=== PATIENT | male | born 1965 | race African-American/Black ===

== ENCOUNTER → 2018-06-05 | Day surgery (SDC) | payer MEDICARE, MEDICAID ==
[~2018-06-05] VITALS: Ht 175.3 cm; Wt 117.9 kg
[~2018-06-05] MED LIST: ALPR2TAB2 PO; AMLO2.5T45 MT; ASPI-1158 PO; CARV6.2548 MT; COR25 PO; FURO-151 PO; HEPARIN 1,000 UNITS PREMIX 0 ML IV ONE; LIDOCAINE HCL 1% 10 MG/ML 10ML VIAL ONE; LISI2.5T47 PO; OMEP20CA10 PO; POTA20TA12 PO; SACU1TAB7 MT
[2018-06-05 08:22] LABS: HEMATOCRIT 38.5 % (42.0-52.0); HEMOGLOBIN 12.6 g/dL (14.0-18.0); MEAN CORPUSCULAR HEMOGLOBIN 31.1 pg (28.0-32.0); MEAN CORPUSCULAR VOLUME 95.2 fL (80.0-94.0); PLATELET 200 x1000/uL (130-400); RED BLOOD CELL COUNT 4.04 mill/uL (4.7-6.1); RED CELL DISTRIBUTION WIDTH 15.5 % (11.6-14.6)
[2018-06-05 08:28] LABS: CHLORIDE 105 mEq/L (98-107)
[2018-06-05 08:31] LABS: PARTIAL THROMBOPLASTIN TIME 31.5 sec (23.4-31.0); PROTHROMBIN TIME 10.4 sec (9.1-11.1)
== END | disposition home or self-care (01) ==
LOC: OR 06:11
PROVIDERS: ATTEND Internal Medicine Clinical Cardiac Electrophysiology
DX: I47.2 Ventricular tachycardia (principal); I11.9 Hypertensive heart disease without heart failure; Z79.899 Other long term (current) drug therapy; J44.9 Chronic obstructive pulmonary disease, unspecified; E78.5 Hyperlipidemia, unspecified; I50.9 Heart failure, unspecified; Z53.8 Procedure and treatment not carried out for other reasons
CPT/HCPCS: 36415; 80048; 85027; 85610; 85730; 93005; J7030; J1644; J3490

== ENCOUNTER 2024-10-05 06:58 | Inpatient (IN) | payer MEDICARE, MEDICAID ==
[~2024-10-05] VITALS: Ht 208.3 cm; Wt 107.6 kg
[~2024-10-05 06:58] MED LIST changes: +ALBU18HF2 IH; -ALPR2TAB2 PO; -AMLO2.5T45 MT; +AMLO2.5T45 PO; -ASPI-1158 PO; +ASPI-1406 PO; +ATOR20TA PO; -CARV6.2548 MT; +CARV6.2548 PO; -COR25 PO; -FURO-151 PO; +GABA-1180 PO; -HEPARIN 1,000 UNITS PREMIX 0 ML IV ONE; +HYDR-4009 PO; -LIDOCAINE HCL 1% 10 MG/ML 10ML VIAL ONE; -LISI2.5T47 PO; -OMEP20CA10 PO; +OMEP20CA14 PO; -POTA20TA12 PO; +SACU1TAB4 PO; -SACU1TAB7 MT; +SPIR25TA6 PO; +VIAG100 PO
[2024-10-05] MEDS ORDERED: SODIUM CHLORIDE 0.45% 500 ML IV NR (08:00)
[2024-10-05 08:10] LABS: HEMATOCRIT. 37.8 % (42.0-52.0); HEMOGLOBIN. 12.3 g/dL (14.0-18.0); LYMPHOCYTES % 32.7 % (20.0-50.0); MEAN CORPUSCULAR HEMOGLOBIN 30.9 pg (28.0-32.0); MEAN CORPUSCULAR HGB CONC 32.7 g/dL (31.0-37.0); MEAN CORPUSCULAR VOLUME 94.4 fL (80.0-94.0); MEAN PLATELET VOLUME 8.2 fl (7.4-10.4); MONOCYTES % 11.9 % (2.0-8.0); NEUTROPHILS % 51.4 % (40.0-76.0); PLATELET 200 x1000/uL (130-400); RED CELL DISTRIBUTION WIDTH 14.6 % (11.6-14.6); WHITE BLOOD COUNT 4.8 x1000/uL (4.5-11.0)
[2024-10-05 08:19] LABS: CHLORIDE 108 mEq/L (98-107); POTASSIUM 3.9 mEq/L (3.5-5.1); SODIUM 141 mEq/L (136-145)
[2024-10-05 08:20] LABS: CARBON DIOXIDE 27 mEq/L (21-32)
[2024-10-05 08:25] LABS: CREATININE 1.1 mg/dL (0.6-1.3); GLUCOSE 99 mg/dL (70-105); UREA NITROGEN BLOOD 14 mg/dL (9-23)
[2024-10-05] MEDS: GENTAMICIN 80MG in SODIUM CHLORIDE IRRIG SOLN 500ML IR NR (08:30)
[2024-10-05] MEDS ORDERED: IODIXANOL 320MG/ML 100 ML BOTTLE IV ONE (08:38)
[2024-10-05 08:39] LABS: PARTIAL THROMBOPLASTIN TIME 29.8 sec (23.4-31.0); PROTHROMBIN TIME 11.1 sec (9.6-11.0)
[2024-10-05] MEDS ORDERED: LIDOCAINE HCL 1% 20ML VIAL ONE (08:39)
[2024-10-05] MEDS ORDERED: PROPOFOL 200MG/20ML VIAL IV ONE ×3 (09:00→11:45)
[2024-10-05] MEDS ORDERED: LIDOCAINE HCL/PF 1% 10 MG/ML 5ML VIAL ONE ×3 (09:30→12:00)
[2024-10-05] MEDS ORDERED: GENTAMICIN SULF 40MG/ML 2ML VIAL ONE (09:54)
[2024-10-05] MEDS ORDERED: FENTANYL CITRATE/PF 50MCG/ML 2ML VIAL ONE (10:48)
[2024-10-05] MEDS ORDERED: ALBUTEROL 6.7GM HFA INHALER INH SCH (13:00)
[2024-10-05] MEDS ORDERED: HYDROCODONE/ACETAMINOPHEN 10/325MG TABLET PO PRN (13:00)
[2024-10-05] MEDS ORDERED: HYDROMORPHONE HCL/PF 1MG/ML INJ IV PRN ×2 (13:15)
[2024-10-05] MEDS ORDERED: LABETALOL 5MG/ML 4ML INJ IV PRN (13:15)
[2024-10-05] MEDS ORDERED: GLYCOPYRROLATE 0.2 MG/ML 2ML VIAL IV PRN (13:15)
[2024-10-05] MEDS ORDERED: DEXAMETHASONE 4MG/ML 1ML VIAL IV PRN (13:15)
[2024-10-05] MEDS ORDERED: ONDANSETRON HCL 4MG/2ML INJ IV PRN (13:15)
[2024-10-05] MEDS: FUROSEMIDE 40MG/4ML VIAL IVP NR (13:36)
[2024-10-05] MEDS ORDERED: ALBUTEROL (0.083%) 2.5MG/3ML NEB HHN PRN (14:00)
[2024-10-05] MEDS: HYDRALAZINE 20MG/ML VIAL IV PRN (14:01)
[2024-10-05 15:54] VITALS: BP 115/91; PULSE 85; RESP 18; TEMP 36.6
[2024-10-05 17:08] VITALS: BP 124/84; PULSE 77; RESP 16; TEMP 36.6; O2SAT 98
[2024-10-05 20:00] VITALS: BP 108/80; PULSE 91; RESP 23; TEMP 36.9; O2SAT 97
[2024-10-05] MEDS: ATORVASTATIN CALCIUM 20MG TABLET PO SCH (21:35)
[2024-10-05] MEDS: CARVEDILOL 6.25 MG TABLET PO SCH (21:36)
[2024-10-05] MEDS: SACUBITRIL/VALSARTAN 49MG/51MG TABLET PO SCH (21:43)
[2024-10-05] MEDS ORDERED: CEFAZOLIN SODIUM 1000MG/VIAL IV SCH (22:00)
[2024-10-05] MEDS: DIPHENHYDRAMINE 50MG/ML VIAL IV NR (23:19)
[2024-10-05] MEDS: CEFAZOLIN 1000MG PREMIX 50ML IV SCH (23:20)
[2024-10-06] VITALS: BP 126/96; PULSE 84; RESP 12; TEMP 36.8; O2SAT 96
[2024-10-06 04:00] VITALS: BP 111/74; PULSE 88; RESP 20; TEMP 36.7; O2SAT 96
[2024-10-06 06:12] LABS: CARBON DIOXIDE 26 mEq/L (21-32); CHLORIDE 103 mEq/L (98-107); POTASSIUM 3.6 mEq/L (3.5-5.1); SODIUM 138 mEq/L (136-145)
[2024-10-06 06:15] LABS: BASOPHILS % 0.5 % (0.0-2.0); EOSINOPHILS % 1.3 % (0.0-5.0); HEMATOCRIT. 38.7 % (42.0-52.0); HEMOGLOBIN. 12.6 g/dL (14.0-18.0); LYMPHOCYTES % 22.6 % (20.0-50.0); MEAN CORPUSCULAR HEMOGLOBIN 30.7 pg (28.0-32.0); MEAN CORPUSCULAR HGB CONC 32.4 g/dL (31.0-37.0); MEAN CORPUSCULAR VOLUME 94.7 fL (80.0-94.0); MEAN PLATELET VOLUME 8.7 fl (7.4-10.4); MONOCYTES % 12.3 % (2.0-8.0); NEUTROPHILS % 63.3 % (40.0-76.0); PLATELET 209 x1000/uL (130-400); RED BLOOD CELL COUNT 4.09 mill/uL (4.7-6.1); RED CELL DISTRIBUTION WIDTH 14.7 % (11.6-14.6)
[2024-10-06 06:18] LABS: CREATININE 1.1 mg/dL (0.6-1.3); GLUCOSE 131 mg/dL (70-105); UREA NITROGEN BLOOD 17 mg/dL (9-23)
[2024-10-06 08:00] VITALS: BP 123/91; PULSE 88; RESP 20; TEMP 36.8; O2SAT 98
[2024-10-06] MEDS: GABAPENTIN 300MG CAPSULE PO SCH (09:33)
[2024-10-06] MEDS: SPIRONOLACTONE 25MG TABLET PO SCH (09:33)
[2024-10-06] MEDS: ASPIRIN 81MG EC TABLET PO SCH (09:33)
[2024-10-06 12:00] VITALS: BP 133/92; PULSE 90; RESP 18; TEMP 36.7; O2SAT 99
[2024-10-06 16:00] VITALS: BP 111/87; PULSE 75; RESP 23; TEMP 36.8; O2SAT 98
[2024-10-06 18:10] VITALS: BP 111/87; PULSE 81; TEMP 98; O2SAT 98
== END 2024-10-06 20:14 | disposition home or self-care (01) | DRG 276 ==
LOC: CCL 06:58 → 3WST 15:54
PROVIDERS: ADMIT Internal Medicine Clinical Cardiac Electrophysiology; ATTEND Internal Medicine Clinical Cardiac Electrophysiology
PROC: 02HL3KZ Insertion of Defibrillator Lead into Left Ventricle, Percutaneous Approach (ICD-10-PCS; principal; 2024-10-05)
PROC: 0JPT0PZ Removal of Cardiac Rhythm Related Device from Trunk Subcutaneous Tissue and Fascia, Open Approach (ICD-10-PCS; 2024-10-05)
PROC: 02PA0MZ Removal of Cardiac Lead from Heart, Open Approach (ICD-10-PCS; 2024-10-05)
PROC: B5171ZZ Fluoroscopy of Left Subclavian Vein using Low Osmolar Contrast (ICD-10-PCS; 2024-10-05)
PROC: 0JH609Z Insertion of Cardiac Resynchronization Defibrillator Pulse Generator into Chest Subcutaneous Tissue and Fascia, Open Approach (ICD-10-PCS; 2024-10-05)
PROC: 05753ZZ Dilation of Right Subclavian Vein, Percutaneous Approach (ICD-10-PCS; 2024-10-05)
DX: Z45.02 Encounter for adjustment and management of automatic implantable cardiac defibrillator (principal); I49.01 Ventricular fibrillation; I50.22 Chronic systolic (congestive) heart failure; I87.1 Compression of vein; I42.0 Dilated cardiomyopathy; I44.7 Left bundle-branch block, unspecified; I11.0 Hypertensive heart disease with heart failure; E66.9 Obesity, unspecified; E78.5 Hyperlipidemia, unspecified; F14.10 Cocaine abuse, uncomplicated; Z79.82 Long term (current) use of aspirin; Z79.899 Other long term (current) drug therapy; Z68.24 Body mass index [BMI] 24.0-24.9, adult
CPT/HCPCS: 33225; 33264; 36415; 71045; 75820; 80048; 82962; 85025; 93005; 93451; 93640; A4565; A4606; C1722; C1769; C1893; C1898; J0360; J0690; J1200; J1580; J1940; J2003; J2704; J3010; J3490; Q9967; C1887